=== PATIENT | male | born 1985 | race Caucasian/White ===

== ENCOUNTER 2017-12-27 11:56 | Emergency (ER) | payer MEDICARE, MEDICAID ==
[~2017-12-27] VITALS: Ht 182.9 cm; Wt 86.0 kg
[2017-12-27] MEDS ORDERED: LITH20CA PO (12:01)
[2017-12-27] MEDS ORDERED: RISO02 PO (12:01)
[2017-12-27] MEDS ORDERED: LORAZEPAM 1MG TABLET PO ONE (12:30)
[2017-12-27 13:31] LABS: BASOPHILS % 0.8 % (0.0-2.0); EOSINOPHILS % 2.8 % (0.0-5.0); HEMOGLOBIN. 15.7 g/dL (14.0-18.0); LYMPHOCYTES % 37.5 % (20.0-50.0); MEAN CORPUSCULAR HEMOGLOBIN 30.6 pg (28.0-32.0); MEAN CORPUSCULAR VOLUME 87.8 fL (80.0-94.0); MEAN PLATELET VOLUME 9.4 fl (7.4-10.4); MONOCYTES % 9.3 % (2.0-8.0); NEUTROPHILS % 49.6 % (40.0-76.0); PLATELET 188 x1000/uL (130-400); RED BLOOD CELL COUNT 5.12 mill/uL (4.7-6.1); RED CELL DISTRIBUTION WIDTH 13.4 % (11.6-14.6)
[2017-12-27 13:37] LABS: CHLORIDE 103 mEq/L (98-107)
[2017-12-27 13:46] LABS: ETHANOL BLOOD < 10 mg/dL
[2017-12-27 13:48] LABS: CREATINE KINASE 153 IU/L (39-308)
[2017-12-27 15:28] LABS: CLARITY URINE CLEAR (CLEAR); COLOR URINE YELLOW (YELLOW); KETONES URINE NEGATIVE (NEGATIVE); LEUKOCYTE ESTERASE URINE NEGATIVE (NEGATIVE); NITRITE URINE NEGATIVE (NEGATIVE); OCCULT BLOOD URINE NEGATIVE (NEGATIVE); PH URINE 5.5 (4.5-8.0); PROTEIN URINE NEGATIVE (NEGATIVE); SPECIFIC GRAVITY URINE 1.017 (1.005-1.030); UROBILINOGEN URINE 0.2 E.U./dL (0.2-1.0)
[2017-12-27 15:47] LABS: *AMPHETAMINES SCREEN URINE NEGATIVE (NEGATIVE); *BARBITURATES SCREEN URINE NEGATIVE (NEGATIVE); *BENZODIAZEPINES SCREEN URINE NEGATIVE (NEGATIVE); *COCAINE SCREEN URINE NEGATIVE (NEGATIVE); METHADONE URINE SCREEN NEGATIVE (NEGATIVE); OPIATES URINE SCREEN NEGATIVE (NEGATIVE)
[2017-12-27 15:48] LABS: CANNABINOID URINE SCREEN PRESUMTIVE POSITIVE (NEGATIVE); PHENCYCLIDINE URINE SCREEN NEGATIVE (NEGATIVE)
[2017-12-28] MEDS ORDERED: LORAZEPAM 1MG TABLET PO ONE (00:30)
[2017-12-28] MEDS ORDERED: OLANZAPINE 10MG TABLET PO STA (01:36)
[2017-12-28 12:02] VITALS: BP 110/68
== END 2017-12-28 12:22 | disposition home or self-care (01) ==
LOC: ER 11:56
DX: E86.0 Dehydration (principal); R45.851 Suicidal ideations; F20.9 Schizophrenia, unspecified; F31.9 Bipolar disorder, unspecified; F43.10 Post-traumatic stress disorder, unspecified; F15.10 Other stimulant abuse, uncomplicated
CPT/HCPCS: 36415; 80053; 80305; 80307; 80329; 81003; 82550; 84443; 85025; 93005; 99285; G0482; 99284

== ENCOUNTER 2017-12-28 14:01 | Emergency (ER) | payer MEDICARE, MEDICAID ==
[~2017-12-28] VITALS: Ht 175.3 cm; Wt 80.0 kg
[~2017-12-28 14:01] MED LIST: LITH20CA PO; RISO02 PO
[2017-12-28 18:32] VITALS: BP 121/85
== END 2017-12-28 18:34 | disposition home or self-care (01) ==
LOC: ER 14:01
DX: F43.0 Acute stress reaction (principal); F20.9 Schizophrenia, unspecified; F31.9 Bipolar disorder, unspecified; F15.10 Other stimulant abuse, uncomplicated; Z79.899 Other long term (current) drug therapy
CPT/HCPCS: 99284